=== PATIENT | female | born 1940 | race Asian ===

== ENCOUNTER → 2016-11-17 | Outpatient (CLI) | payer MEDICARE, OTHER ==
--- NOTE | 2016-11-17 14:13 | RAD ---
Examination: Ultrasound soft tissue neck History: History of left neck lumps Comparison: None available Findings Multiple small lymph nodes identified in the left cervical region with the largest measuring 1.2 cm. Impression: Multiple small left cervical lymph nodes identified with the largest measuring 1.2 cm. The appearance of the lymph nodes is benign. Close interval follow-up examination can be considered.
== END | disposition home or self-care (01) ==
LOC: US 12:18
PROVIDERS: ATTEND Specialist
DX: R91.8 Other nonspecific abnormal finding of lung field (principal); R59.9 Enlarged lymph nodes, unspecified
CPT/HCPCS: 76536

== ENCOUNTER → 2017-05-23 | Outpatient (CLI) | payer MEDICARE, OTHER ==
--- NOTE | 2017-05-23 15:27 | RAD ---
DATE: 05/23/2017. EXAM: MAMMO ANDREI SCREENING BILATERAL. HISTORY: Routine mammographic screening. COMPARISON: None available. This is interpreted as a baseline study. This study was interpreted with the benefit of Computerized Aided Detection (CAD). FINDINGS: The breast parenchyma shows scattered fibroglandular densities. Breast parenchyma level B.. There are no suspicious masses, microcalcifications or architectural distortion. Scattered and vascular calcifications are benign. BI-RADS CATEGORY: 2 BENIGN FINDING(S). RECOMMENDED FOLLOW-UP: 12M 12 MONTH FOLLOW-UP. PQRS compliance statement: Patient information was entered into a reminder system with a target due date 05/23/2018 for the next mammogram. Mammography is a sensitive method for finding small breast cancers, but it does not detect them all and is not a substitute for careful clinical examination. A negative mammogram does not negate a clinically suspicious finding and should not result in delay in biopsying a clinically suspicious abnormality. "Our facility is accredited by the [employer] Mammography Program."
== END | disposition home or self-care (01) ==
LOC: MAMMO 14:37
PROVIDERS: ATTEND Specialist
DX: Z12.31 Encounter for screening mammogram for malignant neoplasm of breast (principal)
CPT/HCPCS: 77063; G0202; 77067

== ENCOUNTER → 2017-11-13 | Outpatient (CLI) | payer MEDICARE, OTHER ==
--- NOTE | 2017-11-13 16:15 | RAD ---
INDICATION: Pain after a fall yesterday. TECHNIQUE: 3 views of the cervical spine are submitted for review. Comparison is from August 21, 2006. FINDINGS: There is no evidence of an acute fracture or dislocation. The prevertebral soft tissues are within normal limits and craniovertebral junction is unremarkable. Degenerative changes again are noted. There is extensive ossification noted at the level of C4-C5 and C5-C6 on the left, a change from 2007. This could represent marked facet hypertrophy at these 2 levels. Heterotopic bone formation related to remote trauma is a possibility. If further workup is required, nonemergent CT could be considered. IMPRESSION: 1. No evidence of an acute fracture or dislocation. 2. 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 Electronically signed by: Trevor Mckeon MD (11/13/2017 4:12 PM) [id number]
--- NOTE | 2017-11-13 16:31 | RAD ---
CT face without contrast History: Fall previous day Technique: CT of the face was performed without intravenous contrast. Axial, sagittal, and coronal reconstructions were obtained. Exposure: One or more of the following individualized dose reduction techniques were utilized for this examination: 1. Automated exposure control 2. Adjustment of the mA and/or kV according to patient size 3. Use of iterative reconstruction technique Findings: No acute fracture is identified. Bilateral orbits and orbital contents appear intact. Multiple foci of soft tissue calcification can be seen involving the nasal cartilage. There is mild mucosal thickening of multiple ethmoid air cells. Mild bilateral maxillary sinus mucosal thickening is seen. There is mild apex leftward deviation of the nasal septum. Patient is edentulous. Impression: 1. No acute facial fracture identified. 2. Mild paranasal sinus disease. Electronically signed by: Mo Short MD (11/13/2017 4:28 PM) [facility]
== END | disposition home or self-care (01) ==
LOC: CT 15:40
PROVIDERS: ATTEND Physician Assistant
DX: M54.2 Cervicalgia (principal); S02.2XXD Fracture of nasal bones, subsequent encounter for fracture with routine healing; X58.XXXD Exposure to other specified factors, subsequent encounter; J32.8 Other chronic sinusitis
CPT/HCPCS: 70486; 72040

== ENCOUNTER → 2018-06-12 | Outpatient (CLI) | payer MEDICARE, OTHER ==
--- NOTE | 2018-06-12 16:46 | CARD ---
MR#: [id number] Date of Study: 06/12/2018 Ordering Physician: CHAD HARRIS, Referring Physician: CHAD HARRIS, Tech: aWnda Padilla DORITA APPROVED REPORT EXAM: Two-dimensional and M-mode echocardiogram with Doppler and color Doppler. Other Information Quality : Good INDICATION Aortic Valve Disease Murmur RISK FACTORS Smoking 2D DIMENSIONS RVDd2.2 (2.9-3.5cm)Left Atrium(2D)3.2 (1.6-4.0cm) IVSd1.0 (0.7-1.1cm)Aortic Root(2D)2.5 (2.0-3.7cm) LVDd4.8 (3.9-5.9cm)LVOT Diameter2.2 (1.8-2.4cm) PWd1.1 (0.7-1.1cm)LVDs3.4 (2.5-4.0cm) FS (%) 28.8 %SV60.5 ml LVEF(%)55.4 (>50%) Aortic Valve AoV Peak Mitch.281.9cm/sAoV VTI48.4cm AO Peak GR.31.8mmHgLVOT Peak Mitch.113.4cm/s LVOT VTI 20.80cmAO Mean GR.17mmHg FLORENTIN (VMAX)1.18mz1LML (VTI)1.59cm2 AI P 1/2 Ggwp123kk Mitral Valve MV E Yvoabugd56.6cm/sMV DECEL MZPH757yl MV A Frrmzvjm84.7cm/sE/A Ratio0.5 Tricuspid Valve TR P. Swvbwmoa981ig/sRAP WRTUTZFH1ohYb TR Peak Gr.04miDeOWIO96jgFk Pulmonary Vein S1 Dmfhkrud77.1cm/sD2 Jtczjbzl40.3cm/s LEFT VENTRICLE The left ventricle is normal size. There is mild concentric left ventricular hypertrophy. The left ve ntricular systolic function is normal and the ejection fraction is within normal range. The Ejection Fraction is 55-60%. There is normal LV segmental wall motion. Transmitral Doppler flow pattern is Gra de I-abnormal relaxation pattern. RIGHT VENTRICLE The right ventricle is normal size. The right ventricular systolic function is normal. ATRIA The left atrium size is normal. The right atrium size is normal. The interatrial septum is intact wit h no evidence for an atrial septal defect or patent foramen ovale as noted on 2-D or Doppler imaging. AORTIC VALVE The aortic valve is calcified and displays decreased opening. Doppler and Color Flow revealed moderat e aortic regurgitation. Calculated aortic valve area is 1.6 cm2 with maximum pressure gradient of 32 mmHg and mean pressure gradient of 17 mmHg. Doppler and color-flow analysis revealed mild aortic sten osis. MITRAL VALVE The mitral valve is calcified but opens well. There is no evidence of mitral valve prolapse. There is no mitral valve stenosis. Doppler and Color-flow revealed mild mitral regurgitation. TRICUSPID VALVE The tricuspid valve is normal in structure and function. Doppler and Color Flow revealed trace tricus pid regurgitation. The PA pressure was estimated at 26 mmHg. There is no tricuspid valve stenosis. PULMONIC VALVE The pulmonic valve is not well visualized. Doppler and Color Flow revealed trace pulmonic valvular re gurgitation. There is no pulmonic valvular stenosis. GREAT VESSELS The aortic root is normal in size. The ascending aorta is normal in size. The IVC is normal in size a nd collapses >50% with inspiration. PERICARDIAL EFFUSION There is no evidence of significant pericardial effusion. Critical Notification Critical Value: No <Conclusion> The left ventricle is normal size. The left ventricular systolic function is normal and the ejection fraction is within normal range. The Ejection Fraction is 55-60%. There is mild concentric left ventricular hypertrophy. Doppler and Color Flow revealed moderate aortic regurgitation. Calculated aortic valve area is 1.6 cm2 with maximum pressure gradient of 32 mmHg and mean pressure g radient of 17 mmHg. Doppler and color-flow analysis revealed mild aortic stenosis. Doppler and Color-flow revealed mild mitral regurgitation. Doppler and Color Flow revealed trace tricuspid regurgitation. The PA pressure was estimated at 26 mmHg. Signed by : Romeo Evangelista MD Electronically Approved : 06/12/2018 16:45:23
== END | disposition home or self-care (01) ==
LOC: ECHO 12:57
PROVIDERS: ATTEND Internal Medicine Cardiovascular Disease
DX: I08.0 Rheumatic disorders of both mitral and aortic valves (principal); F17.210 Nicotine dependence, cigarettes, uncomplicated
CPT/HCPCS: 93306

== ENCOUNTER 2018-07-05 14:48 | Emergency (ER) | payer MEDICARE, OTHER ==
[2018-07-05 15:08] VITALS: BP 165/82
[2018-07-05 15:36] LABS: BASO % 1 % (0-3); EOS # 0.1 x10^3/uL (0.0-0.7); EOS % 1 % (0-3); HEMATOCRIT 38.9 % (36.0-47.0); HEMOGLOBIN 13.1 g/dL (12.0-15.5); LYMPH % 18 % (24-48); MEAN CORPUSCULAR HEMOGLOBIN 31 pg (25-35); MEAN CORPUSCULAR HGB CONC 34 g/dL (31-37); MEAN CORPUSCULAR VOLUME 94 fL (79-100); MONO # 0.3 x10^3/uL (0.0-1.1); MONO % 6 % (0-9); NEUT # 3.9 x10^3uL (1.8-7.7); NEUT % 74 % (31-73); PLATELET COUNT 350 x10^3/uL (140-400); RED BLOOD COUNT 4.16 x10^6/uL (3.50-5.40); RED CELL DISTRIBUTION WIDTH 16.5 % (11.5-14.5); WHITE BLOOD COUNT 5.3 x10^3/uL (4.0-11.0)
--- NOTE | 2018-07-05 15:43 | RAD ---
CHEST AP ONLY History: CHEST PAIN. Comparison: None. Cardiomediastinal silhouette: Not grossly enlarged. Aorta is calcified. Lungs: No focal airspace consolidation. Pleura: No evidence of pleural effusion. Pneumothorax: There is some linear density along the right lung apex, probably a skin fold as there appear to be lung markings beyond this. No left-sided pneumothorax. Support Devices: None. Impression: 1. No evidence of infiltrate. 2. Linear density along the right lung apex, mimics the appearance of a small pneumothorax but lung markings are seen beyond this, and therefore this may just represent a skin fold. However, recommend further evaluation with either expiratory chest radiograph or CT of the chest. Electronically signed by: Mo Gonzalez MD (07/05/2018 3:39 PM) [facility]
[2018-07-05 15:51] LABS: ALBUMIN 3.6 g/dL (3.4-5.0); CALCIUM 8.7 mg/dL (8.5-10.1); CREATININE 0.9 mg/dL (0.6-1.0); DIRECT BILIRUBIN 0.1 mg/dL (0.0-0.2); GFR 60.7; POTASSIUM 4.5 mmol/L (3.5-5.1); TOTAL BILIRUBIN 0.2 mg/dL (0.2-1.0); TOTAL PROTEIN 8.1 g/dL (6.4-8.2)
--- NOTE | 2018-07-05 15:53 | PHYS DOC ---
Past History Past Medical History: Hypertension Past Surgical History: Cholecystectomy Alcohol Use: None Drug Use: None Adult General Chief Complaint Chief Complaint: SHOULDER PAIN HPI HPI 78-year-old female presenting to the emergency department today with left shoulder pain for approximately greater than 3 months. The pain is a throbbing sensation that is worsened over the past few days. It is nonradiating that is associated with mild tingling in the hand. The pain is worse with movement of the shoulder and better with topical bengay. ROS is neg for cp, sob, fever, n/v, or diaphoresis. All other review of systems is negative unless otherwise noted in history of present illness. ED course: 78-year-old female presenting with left shoulder pain. Vitals unremarkable. EKG reviewed by myself shows sinus rhythm with a regular rate. Not suggestive of ACS. There is mild repolarization in lead V2 and V3. Chest x- ray obtained which could not r/o ptx, so ct obtained. Blood work unremarkable. The patient has been examined and was not found to have an emergency medical condition. The patient was then discharged home in stable condition to follow up with their primary care physician over the next 1-2 days. They were to return if their symptoms worsened or if they were concerned for any reason. They were also instructed to return to the emergency department if they were unable to get the recommended and appropriate follow-up. Pfiv-kf-xole discharge instructions and return precautions were given. Patient's questions were answered to their satisfaction. Patient is comfortable with plan. Review of Systems Review of Systems SEE ABOVE. Current Medications Current Medications Current Medications Medications (Trade) Dose Ordered Sig/Jarocho Start Time Stop Time Status Last Admin Dose Admin Cyclobenzaprine HCl (Flexeril) 10 mg 1X ONCE 07/05/18 16:00 07/05/18 16:01 Allergies Allergies Allergies Coded Allergies Type Severity Reaction Last Updated Verified No Known Drug Allergies 07/05/18 No Physical Exam Physical Exam SEE ABOVE Constitutional: Well developed, well nourished, no acute distress, non-toxic appearance. HENT: Normocephalic, atraumatic, bilateral external ears normal, oropharynx moist, no oral exudates, nose normal. [] Eyes: PERRLA, EOMI, conjunctiva normal, no discharge. Neck: Normal range of motion, no tenderness, supple, no stridor. [] Cardiovascular:Heart rate regular rhythm, no murmur Lungs & Thorax: Bilateral breath sounds clear to auscultation [] Abdomen: Bowel sounds normal, soft, no tenderness, no masses, no pulsatile masses. Skin: Warm, dry, no erythema, no rash. Back: No tenderness, no CVA tenderness. [] Extremities: Patient has pain with passive range of motion of the left shoulder in the shoulder region. It neurovascularly intact distally. Tenderness along the musculature of the lateral portion of the patient's neck and shoulder. Superior lateral trapezius. Otherwise, No tenderness, no cyanosis, no clubbing, ROM intact, no edema. Neurologic: Alert and oriented X 3, normal motor function, normal sensory function, no focal deficits noted. [] Psychologic: Affect normal, judgement normal, mood normal. [] Current Patient Data Vital Signs Vital Signs Date Time Temp Pulse Resp B/P (MAP) Pulse Ox O2 Delivery O2 Flow Rate FiO2 07/05/18 15:08 98.4 87 22 99 Room Air Lab Results Laboratory Tests Test 07/05/18 15:24 White Blood Count 5.3 x10^3/uL (4.0-11.0) Red Blood Count 4.16 x10^6/uL (3.50-5.40) Hemoglobin 13.1 g/dL (12.0-15.5) Hematocrit 38.9 % (36.0-47.0) Mean Corpuscular Volume 94 fL (79-100) Mean Corpuscular Hemoglobin 31 pg (25-35) Mean Corpuscular Hemoglobin Concent 34 g/dL (31-37) Red Cell Distribution Width 16.5 % (11.5-14.5) H Platelet Count 350 x10^3/uL (140-400) Neutrophils (%) (Auto) 74 % (31-73) H Lymphocytes (%) (Auto) 18 % (24-48) L Monocytes (%) (Auto) 6 % (0-9) Eosinophils (%) (Auto) 1 % (0-3) Basophils (%) (Auto) 1 % (0-3) Neutrophils # (Auto) 3.9 x10^3uL (1.8-7.7) Lymphocytes # (Auto) 1.0 x10^3/uL (1.0-4.8) Monocytes # (Auto) 0.3 x10^3/uL (0.0-1.1) Eosinophils # (Auto) 0.1 x10^3/uL (0.0-0.7) Basophils # (Auto) 0.0 x10^3/uL (0.0-0.2) EKG EKG [] Radiology/Procedures Radiology/Procedures [] Course & Med Decision Making Course & Med Decision Making Pertinent Labs and Imaging studies reviewed. (See chart for details) [] Dragon Disclaimer Dragon Disclaimer This electronic medical record was generated, in whole or in part, using a voice recognition dictation system. Departure Departure: Impression: Primary Impression: Left shoulder pain Disposition: HOME, SELF-CARE Condition: STABLE Referrals: LOREN SAINI MD (PCP) Patient Instructions: Shoulder Pain Additional Instructions: Thank you for allowing us to participate in your care today. Return to the emergency department you have any new or worsening symptoms, or if you are concerned for any reason. Return to emergency department if you have any new or concerning symptoms including but not limited to fever, chills, nausea, vomiting, intractable pain, any new rashes, chest pain, shortness of air , uncontrolled bleeding, difficulty breathing, and/or vision loss. Follow up with your primary care physician within 1-2 days. Call your Primary Doctor tomorrow and inform them of your visit today. If you do not have a primary care provider we are happy to provide you with a list of our primary care providers contact information. This condition should be evaluated by your primary care physician and any recommended consulting services for continued management within 2 days after discharge. If at any time, you are having difficulty getting into your primary care doctor or a specialist, return to the emergency department. Scripts Hydrocodone Bit/Acetaminophen (HYDROCODONE-APAP 5-325 ) 1 Each Tablet 1 TAB PO PRN Q6HRS PRN for PAIN for 5 Days, #5 TAB 0 Refills Caution: this medication can make you drowsy. Do not drive or operate heavy machinery when using this medication. Prov: MAGGIE FRAZIER MD 07/05/18 Cyclobenzaprine Hcl (CYCLOBENZAPRINE HCL) 10 Mg Tablet 1 TAB PO TID for shoulder pain, #10 TAB Prov: MAGGIE FRAZIER MD 07/05/18 MAGIGE FRAZIER MD Jul 05, 2018 15:53
[2018-07-05] MEDS ORDERED: CYCLOBENZAPRINE 10 MG TABLET. PO ONE (16:00)
[2018-07-05] MEDS ORDERED: CYCL-331 PO (16:00)
--- NOTE | 2018-07-05 16:29 | RAD ---
CT CHEST WO CONTRAST Indication: CONCERN FOR PNEUMOTHORAX SEEN ON CXR, chest pain Technique: Noncontrast CT imaging was performed of the chest, multiplanar reconstruction images submitted. One or more of the following individualized dose reduction techniques were utilized for this examination: 1. Automated exposure control 2. Adjustment of the mA and/or kV according to patient size 3. Use of iterative reconstruction technique. Comparison: Chest radiograph the same day Findings: There is no pneumothorax. There is no pericardial or pleural fluid or lobar infiltrate. There is dkns-wb-angayfyz emphysema. There is small noncalcified right lower lobe nodule about 0.4 cm axial image 81 series 2, tiny 0.2 cm right lower lobe nodule axial image 72. There is also small right upper lobe nodule about 0.2 cm axial image 35 and posterior right upper lobe nodule axial image 31 about 0.5 cm. There is tiny 0.2 cm right upper lobe nodule axial image 36. There is a small fairly dense left upper lobe nodule about 0.2-0.3 cm image 26 and small 0.2 cm left upper lobe nodule axial image 47. There is 0.3 cm left lower lobe nodule axial image 57. There is 0.7 cm right lower lobe nodule best seen sagittal image 81 series 4. There are foci of somewhat dystrophic appearing calcification posteriorly of the right lobe the liver. There is some gas distention of the esophagus. Thoracic aortic caliber is within normal limits, scattered plaque. There is coronary calcification. There are some small mediastinal nodes, largest about 0.6 cm short axis dimension. IMPRESSION: 1. There is no pneumothorax. 2. There is emphysema. 3. There are pulmonary nodules as stated, largest posteriorly of the right upper lobe 0.7 cm. 3-6 month follow-up is recommended as per revised Fleischner guidelines. 4. There is coronary calcification. 5. There is some gas distention of the esophagus. Electronically signed by: Pete Olivares MD (07/05/2018 4:25 PM) [facility]
[2018-07-05] MEDS ORDERED: HYDR-2155 PO (16:55)
--- NOTE | 2018-07-06 14:23 | EKG ---
[address] [address] Test Date: 2018-07-05 Test Time: 16:18:24 Pat Name: JANELLE UNGER Department: Room: Gender: F Advanced Manufacturing Engineer: : [id number] Requested By: MAGGIE FRAZIER Order Number: [id number] Reading MD: Measurements Intervals [place] Rate: 81 P: 61 [place]: 166 QRS: 36 QRSD: 80 T: 31 QT: 380 QTc: 442 Interpretive Statements SINUS RHYTHM LEFT ATRIAL ABNORMALITY ABNORMAL ECG RI6.01 Unconfirmed report No previous ECG available for comparison
== END 2018-07-05 17:00 | disposition home or self-care (01) ==
LOC: ER 14:48
DX: M25.512 Pain in left shoulder (principal); R20.2 Paresthesia of skin; I10 Essential (primary) hypertension; J43.9 Emphysema, unspecified
CPT/HCPCS: 36415; 71045; 71250; 80048; 80076; 83690; 84484; 85025; 93005; 99284-25